=== PATIENT | male | born 2005 | race Caucasian/White ===

== ENCOUNTER 2025-05-21 18:59 | Emergency (ER) | payer OTHER ==
[~2025-05-21] VITALS: Ht 177.8 cm; Wt 94.1 kg
[2025-05-21 20:31] VITALS: BP 130/70; TEMP 99.1; O2SAT 96
[2025-05-21] MEDS: KETOROLAC 60 MG/2 ML VIAL IM ONE (20:59)
== END 2025-05-21 21:18 | disposition home or self-care (01) ==
LOC: M ED 18:59
DX: S06.0X0A Concussion without loss of consciousness, initial encounter (principal); V49.40XA Driver injured in collision with unspecified motor vehicles in traffic accident, initial encounter; F17.200 Nicotine dependence, unspecified, uncomplicated; Y92.410 Unspecified street and highway as the place of occurrence of the external cause; Y93.89 Activity, other specified; Y99.9 Unspecified external cause status
CPT/HCPCS: 70450; 96372; 99283; J1885